=== PATIENT | male | born 1985 | race African-American/Black ===

== ENCOUNTER 2019-04-09 14:04 | Inpatient (IN) | payer SELFPAY ==
[~2019-04-09] VITALS: Ht 177.8 cm; Wt 66.0 kg
[2019-04-09 15:11] LABS: BASO # 0.1 (0.0-0.2); BASO % 0.8 % (0.0-2.0); EOS # 0.2 (0.0-0.7); EOS % 1.7 % (0-4.0); GRAN # 8.4 (1.4-6.5); GRAN % 65.2 % (42.2-75.2); HEMATOCRIT 45.4 % (42.0-52.0); HEMOGLOBIN 15.6 g/dl (13.5-18.0); LYMPH # 3.1 (1.2-3.4); LYMPH % 24.2 % (20.0-51.0); MEAN CELL VOLUME 91 fl (80.0-100.0); MEAN CORPUSCULAR HEMOGLOBIN 31 pg (27.0-31.0); MEAN CORPUSCULAR HGB CONC 34 g/dl (33.0-37.0); MEAN PLATELET VOLUME 11.2 fl (7.4-10.4); MONO % 7.7 % (1.7-9.3); PLATELET COUNT 245 K/mm3 (130-400); RED BLOOD COUNT 4.97 M/mm3 (4.20-5.60); REDCELL DISTRIBUTION WIDTH-CV 14.4 % (11.5-14.5)
[2019-04-09 15:16] LABS: ALANINE AMINOTRANSFERASE 21 U/L (21-72); ALBUMIN 4.6 gm/dL (3.5-5.0); ALKALINE PHOSPHATASE 100 U/L (50-136); ANION GAP 10 mmol/L (7-16); AST,SGOT 46 U/L (15-37); BILIRUBIN,TOTAL 0.4 mg/dL (0.0-1.0); BLOOD UREA NITROGEN 13 mg/dL (9-20); CALCIUM 9.6 mg/dL (8.4-10.2); CARBON DIOXIDE 23 mmol/L (22-30); CHLORIDE 104 mmol/L (98-107); CREATININE, serum 0.66 (0.66-1.25); GLUCOSE 123 mg/dL (74-106); LIPASE 1433 U/L (23-300); POTASSIUM 3.6 mmol/L (3.4-5.0); SODIUM 138 mmol/L (137-145); TOTAL PROTEIN 7.6 gm/dL (6.4-8.2)
[2019-04-09 15:18] LABS: C-REACTIVE PROTEIN < 0.5 mg/dL (0.0-0.9)
[2019-04-09 15:39] LABS: ALCOHOL(ethanol),MEDICAL < 10 mg/dL; MAGNESIUM 1.6 mg/dL (1.6-2.3); PHOSPHOROUS 2.8 mg/dL (2.5-4.5)
[2019-04-09 15:40] LABS: COLLECTION METHOD CLEAN CATCH
[2019-04-09 16:10] LABS: MUCOUS Present /lpf; PH 8 (5-8); SQUAMOUS EPITHELIAL None Seen /hpf; URINE APPEARANCE Clear; URINE BACTERIA None Seen /hpf; URINE BILIRUBIN Negative (NEGATIVE); URINE BLOOD Negative (NEGATIVE); URINE COLOR Yellow; URINE GLUCOSE Negative (NEGATIVE); URINE KETONE Negative (NEGATIVE); URINE LEUKOCYTE ESTERASE Negative (NEGATIVE); URINE NITRATE Negative (NEGATIVE); URINE PROTEIN(semi-quant) Negative (NEGATIVE); URINE UROBILINOGEN Negative (NEGATIVE)
[2019-04-09 17:48] VITALS: BP 158/74; PULSE 55; TEMP 98.5
--- NOTE | 2019-04-09 19:04 | NUR ---
Assessment completed, alert/oriented, patient arrived to the Medical floor from ED around 1730, vital signs stable, patient is ahving 8/10 abdominal pain that is unreleived by the Dilaudid up to this point, I have spoke with and he has put in orders for dose increase, I administered an additiona 2mg IV dialudid as ordered and the patient is not having some releive, rating pain 4/10 at this time, meds/allergies/pharmacy reviewed, patient has a very benign health history other than previous episoded of pancreatitis, heart RRR, lungs CTA, abdomen is soft and BS +, we having patient NPO, IVF infusing, denies other needs at this time, will continue to monitor
--- NOTE | 2019-04-09 19:14 | NUR ---
PT IN BED WITH HOB AT 15 DEGREE ANGLE. PT RATES PAIN IN LEFT ABDOMEN ABOUT A 2/10 AT THIS TIME, BUT ADVISES PAIN SEEMS TO BE INCREASING. PT IS A/O X4, NO S/S OF DETOXING AT THIS TIME. CALL LIGHT WITHIN REACH.
--- NOTE | 2019-04-09 20:33 | NUR ---
CALLED DR. LOPEZ IN REFERENCE TO PT'S PAIN GOING BACK UP. RECEIVED ORDERS FROM DR. LOPEZ TO GIVE DILUADID 2MG IV EVERY 2 HOURS PRN FOR PAIN.
[2019-04-10] VITALS (8 sets, daily range): BP systolic 122–145; BP diastolic 69–95; PULSE 58–89; TEMP 97.9–98.9
--- NOTE | 2019-04-10 01:54 | NUR ---
PT CONTINUES TO HAVE SEVERE PAIN AFTER ABOUT AN HOUR AND A HALF AFTER GIVING DILUADID. PT HAS NO S/S OF DETOXING. PT ADVISES THAT HE DOES NOT DRINK ALCOHOL MUCH HE USE TO AND BARELY DRINKS IT. PT HAS BEEN TRYING TO SLEEP, BUT PAIN HAS BEEN GETTING UP TO 8/10 THAT IS SHARP, ACHY, AND STABLING PAIN. PT IS COOPERATIVE AND PLEASANT. NO OTHER NEEDS AT THIS TIME, CALL LIGHT WITHIN REACH.
--- NOTE | 2019-04-10 06:12 | NUR ---
PT CONTINUES TO HAVE SEVERE PAIN. PT WAS GIVEN DILUADID ABOUT 0324 AND PT ADVISED THAT HE DID SLEEP FOR 2 HOURS. PT DID AWAKEN ABOUT 0510 AND REQUESTED MORE MEDICATION, BECAUSE PAIN HAD INCREASED BACK UP TO A 7/10. PT WAS RECHECK AND PAIN WAS DOWN TO A 2/10. PT RESTING/SLEEPING IN BED WITH NO FURTHER NEEDS AND CALL LIGHT WITHIN REACH.
--- NOTE | 2019-04-10 07:51 | NUR ---
Received report from ANA Melara.
--- NOTE | 2019-04-10 08:06 | NUR ---
Pt awake and alert upon entry to room, given pain medications earlier and states pain is tolerable 10/17, shift assessments complete, left Pt call light in reach, bed in lowest position.
[2019-04-10 09:08] LABS: BASO # 0.1 (0.0-0.2); BASO % 0.4 % (0.0-2.0); EOS # 0.2 (0.0-0.7); EOS % 1.3 % (0-4.0); GRAN # 9.7 (1.4-6.5); GRAN % 78.4 % (42.2-75.2); HEMOGLOBIN 16.3 g/dl (13.5-18.0); LYMPH # 1.4 (1.2-3.4); LYMPH % 11.3 % (20.0-51.0); MEAN CELL VOLUME 94 fl (80.0-100.0); MEAN CORPUSCULAR HEMOGLOBIN 31 pg (27.0-31.0); MEAN CORPUSCULAR HGB CONC 33 g/dl (33.0-37.0); MEAN PLATELET VOLUME 10.8 fl (7.4-10.4); MONO % 8.3 % (1.7-9.3); PLATELET COUNT 190 K/mm3 (130-400); REDCELL DISTRIBUTION WIDTH-CV 14.2 % (11.5-14.5)
[2019-04-10 09:20] LABS: CALCIUM 8.5 mg/dL (8.4-10.2); CREATININE, serum 0.63 (0.66-1.25); MAGNESIUM 1.6 mg/dL (1.6-2.3); PHOSPHOROUS 3.6 mg/dL (2.5-4.5); POTASSIUM 3.5 mmol/L (3.4-5.0)
[2019-04-10 13:15] LABS: CHOLESTEROL RISK RATIO 2.3
--- NOTE | 2019-04-10 18:26 | NUR ---
Pt resting in bed, FOOTWEAR MACHINERY INSTRUCTOR initiated this afternoon, Pt states that his pain is much better controlled, last check pt had only used the Pt control twice. VS have been stable.
--- NOTE | 2019-04-10 20:30 | NUR ---
Initial shift assessment done- states PIN BALL MACHINE MECHANIC is working well to control abd pain-rates pain 08/19. PIN BALL MACHINE MECHANIC DIlaudid with basal rate of 0.5mg/hr with rescue dose of 0.4mg every 6 minutes if needed. NPO. VSS. IV fluids of NS at 150cc/hr- Resting, watching TV, calm, pleasant
[2019-04-11 04:08] VITALS: BP 120/65; PULSE 76; TEMP 98.1
--- NOTE | 2019-04-11 06:14 | NUR ---
Quiet night-AIRCRAFT CLEANING SUPERVISOR effective for pain control- states is hungry this morning- remains NPO,
[2019-04-11 06:48] LABS: BASO % 0.3 % (0.0-2.0); EOS # 0.3 (0.0-0.7); EOS % 2.7 % (0-4.0); GRAN # 6.5 (1.4-6.5); GRAN % 71.1 % (42.2-75.2); HEMATOCRIT 43.6 % (42.0-52.0); LYMPH # 1.6 (1.2-3.4); LYMPH % 17.3 % (20.0-51.0); MEAN CELL VOLUME 95 fl (80.0-100.0); MEAN CORPUSCULAR HEMOGLOBIN 31 pg (27.0-31.0); MEAN CORPUSCULAR HGB CONC 33 g/dl (33.0-37.0); MEAN PLATELET VOLUME 11.4 fl (7.4-10.4); MONO # 0.8 (0.1-0.6); MONO % 8.5 % (1.7-9.3); PLATELET COUNT 165 K/mm3 (130-400)
[2019-04-11 06:50] LABS: ALBUMIN 3.5 gm/dL (3.5-5.0); BILIRUBIN,TOTAL 0.6 mg/dL (0.0-1.0); CALCIUM 8.3 mg/dL (8.4-10.2); CREATININE, serum 0.63 (0.66-1.25); POTASSIUM 3.3 mmol/L (3.4-5.0); TOTAL PROTEIN 6.2 gm/dL (6.4-8.2)
[2019-04-11 07:00] LABS: HEMOGLOBIN 14.3 g/dl (13.5-18.0)
[2019-04-11 07:50] VITALS: BP 141/92; PULSE 77; TEMP 97.7
--- NOTE | 2019-04-11 09:00 | NUR ---
Pt is awake and A/Ox4, sitting up in bed. IVF and dilaudid FARM MANAGEMENT SUPERVISOR infusing without difficulty into left AC. Pt rates pain a 4-5/10 to his abdomen. Pt asking to increase diet, stating he is feeling hungry. Pt tolerating ice chips. Pt denies any other needs.
[2019-04-11 11:51] VITALS: BP 144/76; PULSE 78; TEMP 98.3
--- NOTE | 2019-04-11 11:53 | NUR ---
Pt is sitting up in bed, working on clear liquid tray. Pt tolerating without difficulty. Scored 1/10 on ETOH detox scale. Denies any other needs.
[2019-04-11 16:03] VITALS: BP 142/89; PULSE 80; TEMP 98.7
--- NOTE | 2019-04-11 18:24 | NUR ---
Pt is doing well throughout shift. NEON TECHNICIAN continues to run without difficulty, pain controlled. Pt is tolerating clears. Girlfriend at bedside.
[2019-04-11 20:00] VITALS: BP 136/79; PULSE 59; TEMP 98.1
--- NOTE | 2019-04-11 22:15 | NUR ---
Initial shift assessment done- states abd pain 12/17- did try some jello/broth - that did increase his pain, popsicles were ok-did not make more pain- continues on Dilaudid [employer]- IV fluids at 150cc/hr. Up on own- steady
[2019-04-11 23:56] VITALS: BP 134/76; PULSE 66; TEMP 98.3
[2019-04-12 04:17] VITALS: BP 135/72; PULSE 57; TEMP 98.1
--- NOTE | 2019-04-12 05:35 | NUR ---
Not much sleep last night- states his abdominal pain is worse tonight after starting the clear liquids- Continues with EMS DIRECTOR Dilaudid- use 10.47 mg this shift-
[2019-04-12 07:40] LABS: BASO % 0.3 % (0.0-2.0); EOS # 0.3 (0.0-0.7); EOS % 5.2 % (0-4.0); GRAN # 3.7 (1.4-6.5); GRAN % 61.1 % (42.2-75.2); HEMATOCRIT 44.6 % (42.0-52.0); LYMPH # 1.5 (1.2-3.4); LYMPH % 23.9 % (20.0-51.0); MEAN CELL VOLUME 95 fl (80.0-100.0); MEAN CORPUSCULAR HEMOGLOBIN 32 pg (27.0-31.0); MEAN CORPUSCULAR HGB CONC 34 g/dl (33.0-37.0); MEAN PLATELET VOLUME 12.2 fl (7.4-10.4); MONO # 0.6 (0.1-0.6); MONO % 9.3 % (1.7-9.3); PLATELET COUNT 161 K/mm3 (130-400); RED BLOOD COUNT 4.72 M/mm3 (4.20-5.60); REDCELL DISTRIBUTION WIDTH-CV 13.8 % (11.5-14.5)
[2019-04-12 08:09] VITALS: BP 134/88; PULSE 65; TEMP 98.3
[2019-04-12 08:45] LABS: ANION GAP 8 mmol/L (7-16); BLOOD UREA NITROGEN < 2 mg/dL (9-20); CALCIUM 9.2 mg/dL (8.4-10.2); CARBON DIOXIDE 31 mmol/L (22-30); CHLORIDE 100 mmol/L (98-107); CREATININE, serum 0.53 (0.66-1.25); GLUCOSE 90 mg/dL (74-106); LIPASE 662 U/L (23-300); MAGNESIUM 2.1 mg/dL (1.6-2.3); POTASSIUM 3.5 mmol/L (3.4-5.0); SODIUM 139 mmol/L (137-145)
[2019-04-12 11:09] VITALS: BP 131/78; PULSE 59; TEMP 98.1
--- NOTE | 2019-04-12 11:53 | NUR ---
First visit from the basket turner. No needs right now.
[2019-04-12 16:02] VITALS: BP 122/65; PULSE 61; TEMP 98.4
--- NOTE | 2019-04-12 16:09 | NUR ---
SW met with patient to discuss discharge planning. Patient lives alone in [place] but is visiting his girlfriend's family here in [place]. Patient reports he does not have a PCP but is in process of obtaining one in [place]. Patient reports he obtains medications from [facility] but if not currently prescribed any besides Zoloft. Patient reports his psychiatrist manages that medication. Patient reports he is not taking the Zoloft due to inability to pay for it. SW inquired if patient has spoken with his psychiatrist about changing his medication to something more affordable. Patient reports he has not. Patient does not currently have insurance because he lost his job but he reports his family is supportive and lives in [place] as well. Patient was seen by Uyen, financial counselor, to complete a financial assistance application. No additional needs at this time.
--- NOTE | 2019-04-12 19:32 | NUR ---
PT HAS BEEN STOPPED FROM SAFETY SCIENTIST THIS AM, GAVE DOSE OF OXYDONE AT TIME OF DC. PT HAS OXYCODONE Q6 PRN AND HAS BEEN UNABLE TO TOLERATE WAITING THE 6HRS, RECIEVED VERBAL ORDER TO GIVE EARLY. AFTER TAKING PO MED PT HAS BEEN RELIEVED OF PAIN UP TIL ABOUT 5 HOURS, THEN ATE SUPPER THEN HAD SOME ABD PAIN AFTERWARDS, DR. DUGAN GAVE VERBALE ORDER TO GIVE A SECOND DOSE OF PAIN MED AND TO USE THE PROTOCOL, THAT IF PAIN IS UNRELIEVED TO ADMINISTER A SECOND DOSE. PT HAD NO OTHER CONCERNS OR ISSUES VOICED THIS SHIFT. REPLACED POTASSIUM THIS SHIFT. PT KEPT TURNING OFF IV PUMP SO POTASSIUM IV HAD GOTTEN BEHIND ON ADMIN TIME, PT WOULD TURN OFF IV IF BEEPING AND NOT NOTIFY STAFF.
[2019-04-12 20:08] VITALS: BP 154/73; PULSE 60; TEMP 98.2
[2019-04-13 00:30] VITALS: BP 125/75; PULSE 65; TEMP 98.2
[2019-04-13 05:06] VITALS: BP 138/90; PULSE 62; TEMP 98
[2019-04-13 05:57] LABS: BASO % 0.4 % (0.0-2.0); EOS # 0.4 (0.0-0.7); EOS % 5.4 % (0-4.0); GRAN # 3.9 (1.4-6.5); GRAN % 55.3 % (42.2-75.2); HEMATOCRIT 47.3 % (42.0-52.0); HEMOGLOBIN 15.8 g/dl (13.5-18.0); LYMPH # 2.1 (1.2-3.4); LYMPH % 29.3 % (20.0-51.0); MEAN CELL VOLUME 94 fl (80.0-100.0); MEAN CORPUSCULAR HEMOGLOBIN 31 pg (27.0-31.0); MEAN CORPUSCULAR HGB CONC 33 g/dl (33.0-37.0); MEAN PLATELET VOLUME 10.9 fl (7.4-10.4); MONO # 0.7 (0.1-0.6); MONO % 9.5 % (1.7-9.3); PLATELET COUNT 179 K/mm3 (130-400); RED BLOOD COUNT 5.03 M/mm3 (4.20-5.60); REDCELL DISTRIBUTION WIDTH-CV 13.9 % (11.5-14.5)
[2019-04-13 06:11] LABS: CALCIUM 10.1 mg/dL (8.4-10.2); CREATININE, serum 0.66 (0.66-1.25); POTASSIUM 4.4 mmol/L (3.4-5.0)
--- NOTE | 2019-04-13 08:11 | NUR ---
Pt had a good night. Up ad gayle in room. Friend at bedside. IV site infiltrated. Restarted with #20 ga in L lower FA on first attempt. Restarted NS at 150mL/hr. Medicated twice last night with Oxycodone 5mg x2 tabs. Rated pain 7-8/10, Tolerating popcicles, sprite and some crackers. Call light within reach. Will continue to monitor.
[2019-04-13 09:15] VITALS: BP 139/94; PULSE 67; TEMP 97.8
--- NOTE | 2019-04-13 12:00 | NUR ---
PT HAD SOME C/O ABD PAIN THIS AM AND REQUESTED SOME PAIN MEDS. THIS NURSE WORKING ON DC PAPERWORK AT THIS TIME.
--- NOTE | 2019-04-13 13:00 | NUR ---
DISCHARGE PAPERWORK WENTO OVER WITH PT. IV REMOVED. PT ASKED THIS NURSE ABOUT NEEDING SOME PAIN MEDS TO TAKE HOME WITH HIM. THIS NURSE CALLED PA AND PA TOLD THIS NURSE SHE WAS GOING TO SEND PT WITH SCRIPT
[2019-04-13] MEDS ORDERED: ROXICODONE 55 MG/TAB PO (13:23)
--- NOTE | 2019-04-13 13:30 | NUR ---
PT EXITING FACILITY AT THIS TIME. PT PROVIDED WITH SCRIPT FOR PAIN MEDS. NO QUESTIONS VOICED.
--- NOTE | 2019-04-13 20:13 | NUR ---
PT HAD SOME C/O ABD PAIN THIS AM AND REQUESTED SOME PAIN MEDS. THIS NURSE WORKING ON DC PAPERWORK AT THIS TIME.
== END 2019-04-13 13:30 | disposition home or self-care (01) | DRG 440 ==
LOC: COL.ER 14:04 → MEDICAL 16:56
PROVIDERS: Emergency Medicine; Hospitalist; Physician Assistant; ADMIT Internal Medicine Pulmonary Disease
DX: K85.20 Alcohol induced acute pancreatitis without necrosis or infection (principal); K86.0 Alcohol-induced chronic pancreatitis; E87.6 Hypokalemia; F17.210 Nicotine dependence, cigarettes, uncomplicated; D69.6 Thrombocytopenia, unspecified; D72.829 Elevated white blood cell count, unspecified; E86.0 Dehydration; Z72.89 Other problems related to lifestyle
CPT/HCPCS: 99222-AI; 99231-AI; 99232-AI; 99233-AI; 99239; J1170; J1650; J2405; J3475; J3480; J7030; Q9967